=== PATIENT | male | born 1950 | race Caucasian/White ===

== ENCOUNTER 2019-04-18 18:19 | Inpatient (IN) | payer MEDICARE, OTHER ==
[~2019-04-18] VITALS: Ht 185.4 cm; Wt 72.6 kg
[2019-04-18] MEDS ORDERED: IV NORMAL SALINE 1,000ML 1,000 ML IV ONE (18:45)
[2019-04-18 19:24] LABS: BASO % 1 % (0-3); EOS # 0.3 x10^3/uL (0.0-0.7); EOS % 4 % (0-3); HEMATOCRIT 36.5 % (39.0-53.0); HEMOGLOBIN 11.9 g/dL (13.0-17.5); LYMPH # 1.2 x10^3/uL (1.0-4.8); LYMPH % 17 % (24-48); MEAN CORPUSCULAR HEMOGLOBIN 33 pg (25-35); MEAN CORPUSCULAR HGB CONC 33 g/dL (31-37); MEAN CORPUSCULAR VOLUME 100 fL (79-100); MONO # 0.4 x10^3/uL (0.0-1.1); MONO % 6 % (0-9); NEUT # 4.9 x10^3uL (1.8-7.7); NEUT % 72 % (31-73); PLATELET COUNT 217 x10^3/uL (140-400); RED BLOOD COUNT 3.64 x10^6/uL (4.30-5.70); RED CELL DISTRIBUTION WIDTH 18.6 % (11.5-14.5); WHITE BLOOD COUNT 6.8 x10^3/uL (4.0-11.0)
[2019-04-18 19:31] LABS: ALBUMIN 2.7 g/dL (3.4-5.0); ALBUMIN/GLOBULIN RATIO 0.6 (1.0-1.7); CREATININE 0.6 mg/dL (0.7-1.3); GFR 134.8; POTASSIUM 3.5 mmol/L (3.5-5.1); TOTAL BILIRUBIN 0.2 mg/dL (0.2-1.0); TOTAL PROTEIN 6.9 g/dL (6.4-8.2)
--- NOTE | 2019-04-18 19:31 | RAD ---
Exam: CT lumbar spine without contrast INDICATION: Burning sensation, lower legs. Loss bowel and bladder. Can't move TECHNIQUE: Sequential axial images through the lumbar spine obtained without IV contrast. Sagittal and coronal reformatted images were reconstructed from the axial data and reviewed. Comparisons: None FINDINGS: Mild compression of the superior endplate of L4 with less than 25 percent height loss. No retropulsion. There is straightening of the lumbar spine which may be positional. Fracture to the lumbar spine is not identified. L1-L2: Mild broad-based disc bulge without significant neural foraminal or spinal canal stenosis. L2-L3: Mild broad-based disc bulge, facet arthropathy and ligamentum flavum thickening causing mild spinal canal stenosis. No significant neural foraminal stenosis. L3-L4: Broad-based disc bulge, ligament flavum thickening and facet arthropathy causing at least moderate spinal canal stenosis and moderate bilateral neural foraminal stenosis. L4-L5: Broad-based disc bulge causing moderate left and mild right-sided neural foraminal stenosis. L5-S1: Broad-based disc bulge and facet arthropathy causing moderate to severe left and moderate right-sided neural foraminal stenosis. Patchy airspace disease at the left lung base. Hepatic steatosis. IMPRESSION: 1. Visual spondylotic change in the lumbar spine as described above greatest at L3-L4 with at least moderate spinal canal stenosis and moderate bilateral neural foraminal stenosis. 2. Mild compression deformity of the superior endplate of L4 with less than 25 percent height loss, age indeterminate. No significant retropulsion into the spinal canal. 3. Patchy airspace disease at the left lung, may represent pneumonia. Recommend correlation with chest radiograph. 4. Diffuse hepatic steatosis. Exposure: One or more of the following in the visualized dose reduction techniques were utilized for this examination: 1. Automated exposure control 2. Adjustment of the MA and/or KV according to patient size 3. Use of iterative of reconstructive technique Electronically signed by: Mark Holm MD (04/18/2019 7:29 PM) [facility]
--- NOTE | 2019-04-18 20:41 | PHYS DOC ---
Past History Past Medical History: Alcoholism Past Surgical History: No Surgical History Alcohol Use: Heavy Drug Use: None Adult General Chief Complaint Chief Complaint: LOWER EXT PAIN HPI HPI 68-year-old male presents via EMS as a referral from the [place]. The patient is reported to be calling out for help where he lives in a neighbor called an ambulance. Shortly events report stated the patient had altered mental status and absent pulses in the right foot. The patient was complaining about foot numbness and low back pain. On arrival to the ED, he is alert and oriented 3. He is complaining of chronic lower extremity cramping and pain. He was found lost balance bladder. He tells me that this is not unusual for him. He drinks alcohol daily. He has had less alcohol to drink today than usual. He is not very specific about any other complaints. He is able to answer all my questions without difficulty. He denies fever or chills. Review of Systems Review of Systems Constitutional: Denies fever or chills [] Eyes: Denies change in visual acuity, redness, or eye pain [] HENT: Denies nasal congestion or sore throat [] Respiratory: Denies cough or shortness of breath [] Cardiovascular: No additional information not addressed in HPI [] GI: Denies abdominal pain, nausea, vomiting, bloody stools or diarrhea [] : Denies dysuria or hematuria [] Musculoskeletal: Bilateral lower extremity cramping[] Integument: Denies rash or skin lesions [] Neurologic: Loss of bowel and bladder. Denies headache, focal weakness or sensory changes from baseline [] Endocrine: Denies polyuria or polydipsia [] All other systems were reviewed and found to be within normal limits, except as documented in this note. Current Medications Current Medications Current Medications Medications (Trade) Dose Ordered Sig/Joseph Start Time Stop Time Status Last Admin Dose Admin Sodium Chloride 1,000 ml @ 1,000 mls/hr 1X ONCE 04/18/19 18:45 04/18/19 19:44 DC 04/18/19 18:45 1,000 MLS/HR Allergies Allergies Allergies Coded Allergies Type Severity Reaction Last Updated Verified No Known Drug Allergies 04/18/19 No Physical Exam Physical Exam Constitutional: Well developed, thin, no acute distress, non-toxic appearance. [] HENT: Normocephalic, atraumatic, bilateral external ears normal, oropharynx very dry, no oral exudates, nose normal. [] Eyes: PERRLA, EOMI, conjunctiva normal, no discharge. [] Neck: Normal range of motion, no tenderness, supple, no stridor. [] Cardiovascular: Heart rate regular rhythm, no murmur [] Lungs & Thorax: Bilateral breath sounds clear to auscultation [] Abdomen: Bowel sounds normal, soft, no tenderness, no masses, no pulsatile masses. [] Skin: Cool, moist, no erythema, no rash. [] Back: No tenderness, no CVA tenderness. [] Extremities: No tenderness, no cyanosis, no clubbing, ROM intact, no edema. Moving all extremities to command. Strength 4 out of 5 upper and lower extremities bilaterally. [] Neurologic: Alert and oriented X 3, normal motor function, normal sensory function, no focal deficits noted. [] Psychologic: Affect normal, judgement normal, mood normal. [] Current Patient Data Vital Signs Vital Signs Date Time Temp Pulse Resp B/P (MAP) Pulse Ox O2 Delivery O2 Flow Rate FiO2 04/18/19 18:33 100 20 89 Nasal Cannula 3.0 Lab Results Laboratory Tests Test 04/18/19 18:50 White Blood Count 6.8 x10^3/uL (4.0-11.0) Red Blood Count 3.64 x10^6/uL (4.30-5.70) L Hemoglobin 11.9 g/dL (13.0-17.5) L Hematocrit 36.5 % (39.0-53.0) L Mean Corpuscular Volume 100 fL (79-100) Mean Corpuscular Hemoglobin 33 pg (25-35) Mean Corpuscular Hemoglobin Concent 33 g/dL (31-37) Red Cell Distribution Width 18.6 % (11.5-14.5) H Platelet Count 217 x10^3/uL (140-400) Neutrophils (%) (Auto) 72 % (31-73) Lymphocytes (%) (Auto) 17 % (24-48) L Monocytes (%) (Auto) 6 % (0-9) Eosinophils (%) (Auto) 4 % (0-3) H Basophils (%) (Auto) 1 % (0-3) Neutrophils # (Auto) 4.9 x10^3uL (1.8-7.7) Lymphocytes # (Auto) 1.2 x10^3/uL (1.0-4.8) Monocytes # (Auto) 0.4 x10^3/uL (0.0-1.1) Eosinophils # (Auto) 0.3 x10^3/uL (0.0-0.7) Basophils # (Auto) 0.0 x10^3/uL (0.0-0.2) Sodium Level 142 mmol/L (136-145) Potassium Level 3.5 mmol/L (3.5-5.1) Chloride Level 103 mmol/L (98-107) Carbon Dioxide Level 29 mmol/L (21-32) Anion Gap 10 (6-14) Blood Urea Nitrogen 8 mg/dL (8-26) Creatinine 0.6 mg/dL (0.7-1.3) L Estimated GFR (Cockcroft-Gault) 134.8 BUN/Creatinine Ratio 13 (6-20) Glucose Level 86 mg/dL (70-99) Calcium Level 8.0 mg/dL (8.5-10.1) L Total Bilirubin 0.2 mg/dL (0.2-1.0) Aspartate Amino Transferase (AST) 31 U/L (15-37) Alanine Aminotransferase (ALT) 18 U/L (16-63) Alkaline Phosphatase 109 U/L (46-116) Total Protein 6.9 g/dL (6.4-8.2) Albumin 2.7 g/dL (3.4-5.0) L Albumin/Globulin Ratio 0.6 (1.0-1.7) L Ethyl Alcohol Level 320 mg/dL (0-10) H EKG EKG Sinus rhythm, rate 90, leftward axis, no ST elevations or depressions.[] Radiology/Procedures Radiology/Procedures [] Impressions: Exam: CT lumbar spine without contrast INDICATION: Burning sensation, lower legs. Loss bowel and bladder. Can't move TECHNIQUE: Sequential axial images through the lumbar spine obtained without IV contrast. Sagittal and coronal reformatted images were reconstructed from the axial data and reviewed. Comparisons: None FINDINGS: Mild compression of the superior endplate of L4 with less than 25 percent height loss. No retropulsion. There is straightening of the lumbar spine which may be positional. Fracture to the lumbar spine is not identified. L1-L2: Mild broad-based disc bulge without significant neural foraminal or spinal canal stenosis. L2-L3: Mild broad-based disc bulge, facet arthropathy and ligamentum flavum thickening causing mild spinal canal stenosis. No significant neural foraminal stenosis. L3-L4: Broad-based disc bulge, ligament flavum thickening and facet arthropathy causing at least moderate spinal canal stenosis and moderate bilateral neural foraminal stenosis. L4-L5: Broad-based disc bulge causing moderate left and mild right-sided neural foraminal stenosis. L5-S1: Broad-based disc bulge and facet arthropathy causing moderate to severe left and moderate right-sided neural foraminal stenosis. Patchy airspace disease at the left lung base. Hepatic steatosis. IMPRESSION: 1. Visual spondylotic change in the lumbar spine as described above greatest at L3-L4 with at least moderate spinal canal stenosis and moderate bilateral neural foraminal stenosis. 2. Mild compression deformity of the superior endplate of L4 with less than 25 percent height loss, age indeterminate. No significant retropulsion into the spinal canal. 3. Patchy airspace disease at the left lung, may represent pneumonia. Recommend correlation with chest radiograph. 4. Diffuse hepatic steatosis. Exposure: One or more of the following in the visualized dose reduction techniques were utilized for this examination: 1. Automated exposure control 2. Adjustment of the MA and/or KV according to patient size 3. Use of iterative of reconstructive technique Electronically signed by: Mark Caraballo MD (04/18/2019 7:29 PM) [facility] DICTATED AND SIGNED BY: MARK CARABALLO MD DATE: 04/18/191928 CC: FRIDA BURR DO; PCP,NO ~ Course & Med Decision Making Course & Med Decision Making Pertinent Labs and Imaging studies reviewed. (See chart for details) The patient's lumbar CT is significant for several areas of disc bulge and stenosis. This is likely leading to his lower extremity symptoms. It does not appear that he has any change from baseline. He is moving all of his extremities without difficulty. He has normal cap refill in his upper and lower extremities. He appears quite dehydrated. We will give him 1 L normal saline. His labs are remarkable for mild anemia. His alcohol level was 340. Urinalysis and drug screen are pending. His urinalysis is negative for infection. The patient is unable to care for himself at home right now due to his intoxication. I will admit him to sober up. I spoke with Dr. Ronquillo and he has accepted patient for admission. [] Dragon Disclaimer Dragon Disclaimer This electronic medical record was generated, in whole or in part, using a voice recognition dictation system. Departure Departure: Impression: Primary Impression: Alcohol intoxication Disposition: ADMITTED INPATIENT Admitting Physician: Wilber Ronquillo Condition: STABLE Referrals: PCP,NO (PCP) Problem Qualifiers Primary Impression: Alcohol intoxication Complication of substance-induced condition: uncomplicated Qualified Codes: F10.920 - Alcohol use, unspecified with intoxication, uncomplicated FRIDA BURR DO Apr 18, 2019 20:41
[2019-04-18 21:51] LABS: BARBITURATES NEG (NEG); BENZODIAZEPINES NEG (NEG); CANNABINOIDS NEG (NEG); COCAINE NEG (NEG); METHADONE NEG (NEG); OPIATES NEG (NEG); PHENCYCLIDINE NEG (NEG)
[2019-04-18 21:58] LABS: AMPHETAMINE/METHAMPHETAMINE NEG (NEG)
--- NOTE | 2019-04-18 21:59 | RAD ---
Indication:Shortness of breath and cough TECHNIQUE:Portable AP chest X-ray COMPARISON: None FINDINGS: Heart is normal in size. There is loss of left lung volume with opacification of the left lower lung zone with patchy opacities. Coarse interstitial opacities are seen in the right lung. No pneumothorax. Subacute to chronic right lateral fourth, fifth rib fractures. Impression: Consolidation in the left lung base with loss of left lung volume may be from pneumonia, atelectasis or aspiration. Right lung COPD changes. Superimposed atypical/viral infection not ruled out. Electronically signed by: Thaddeus Schroeder DO (04/18/2019 9:56 PM) [facility]
[2019-04-18 22:04] LABS: BILIRUBIN,URINE NEG (NEG); CLARITY,URINE CLEAR; COLOR,URINE YELLOW; GLUCOSE,URINE NEG (NEG)
[2019-04-18 22:05] LABS: BACTERIA,URINE 0 /HPF (0-FEW); NITRITE,URINE NEG (NEG); RBC,URINE 0 /HPF (0-2); UROBILINOGEN,URINE 0.2 mg/dL (0.2 mg/dL); WBC,URINE 0 /HPF (0-4)
[2019-04-19] MEDS ORDERED: ONDANSETRON PF 4 MG/2 ML VIAL. IV PRN (01:00)
[2019-04-19] MEDS ORDERED: MVI, ADULT NO.4 WITH VIT K 10 ML, THIAMINE INJ 100 MG, FOLIC ACID INJ 1 MG in IV NORMAL... IV SCH ×4 (01:30)
[2019-04-19 01:59] VITALS: BP 134/75
[2019-04-19] MEDS: IPRATRPIUM/ALBUTEROL 0.5/2.5MG 3 ML NEBU. NEB SCH ×5 (02:30→20:52)
[2019-04-19] MEDS ORDERED: GUAI600T47 PO (02:51)
[2019-04-19] MEDS ORDERED: IBUP200T58 PO (02:51)
[2019-04-19 04:57] VITALS: BP 132/74
[2019-04-19] MEDS ORDERED: Influenza vaccine per PROTOCOL. MC PRN (05:15)
[2019-04-19] MEDS ORDERED: PIP/TAZO PER PHARMACY MC PRN (05:30)
[2019-04-19] MEDS: PIPERACILLIN/TAZOBACTAM 3.375 GM in IV NORMAL SALINE 50ML 50 ML IV SCH ×3 (06:03→17:35)
--- NOTE | 2019-04-19 07:33 | EKG ---
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
[2019-04-19] MEDS ORDERED: FLU VAX QS 2019-20 (36MOS+)/PF 0.5 ML SYRINGE. VAX IM ONE (09:00)
[2019-04-19] MEDS: MVI, ADULT NO.4 WITH VIT K 10 ML, THIAMINE INJ 100 MG, FOLIC ACID INJ 1 MG in IV NORMAL... IV SCH ×4 (09:25)
[2019-04-19 10:51] VITALS: BP 128/75
[2019-04-19] MEDS ORDERED: CONTRAST GIVEN MC PRN (12:45)
[2019-04-19] MEDS ORDERED: IOHEXOL 350 MG/ML 100 ML VIAL. IV ONE (12:45)
--- NOTE | 2019-04-19 13:03 | HP ---
ADMIT DATE: 04/19/2019 HISTORY OF PRESENT ILLNESS: The patient is a 68-year-old male patient who was brought to the Emergency Room by emergency medical service personnel as a referral from the [place]. He apparently fell and was found according to him on the floor by his brother who has an extra hunter and he called the ambulance. He apparently was brought due to altered mental status and apparently was also complaining of back pain and tingling and numbness of his right foot. On arrival to the Emergency Room, he was alert, oriented x 3, complaining of chronic lower extremity cramping and pain. He apparently was found to be incontinent of bowel and bladder and he stated that this is not unusual for him. He drinks alcohol daily. He has drink less alcohol last night than usual; however, he was not specific as to how much he was drinking; however, he answered all questions without difficulty. Did complain of cough and sputum. Did not know what color it is. Denied any chest pain or shortness of breath and apparently, he was extensively investigated in the Emergency Room. His EKG that was in sinus rhythm, leftward axis, no ST segment elevation or depression. His CT scan of the lumbar spine without contrast showed that the patient has spondylitic changes in the lumbar spine, greatest at L3-L4 with at least moderate spinal canal stenosis and moderate bilateral neural foraminal stenosis, has also mild compression deformity of the superior endplate of L4 with less than 25% height loss, age indeterminate. No significant retropulsion and spinal canal and patchy airspace disease in the left lung represent pneumonia. Recommend correlation with chest radiograph and diffuse hepatic steatosis. He was admitted with alcohol intoxication, probably aspiration pneumonia. His blood alcohol level was extremely high at 340; however, his urinalysis was unremarkable. He was started on a banana bag, alcohol withdrawal protocol as well as started on Zosyn 3.375 grams IV every 6 hours for possible aspiration pneumonia. PAST MEDICAL HISTORY: Significant for chronic obstructive pulmonary disease, chronic back pain, and degenerative disk disease. PAST SURGICAL HISTORY: Significant for cataract extraction of his right eye, cholecystectomy, back surgery as well as esophagogastroduodenoscopy and colonoscopy. ALLERGIES: He has no known drug allergies. MEDICATIONS: He is currently on following medications: He is on ibuprofen 200 mg 3 times a day as needed, Mucinex 600 mg twice a day. He is also on occasional inhalers. FAMILY HISTORY: Noncontributory. SOCIAL HISTORY: He is , lives alone. He has 1 daughter. 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 He continued to smoke and drink alcohol; however, denied any illicit drug use. REVIEW OF SYSTEMS: The patient denied any blurring of vision. He does have cataract in left eye that is scheduled for surgery. Denied any glaucoma or macular degeneration. Denied any earache, tinnitus or sensorineural deafness. Denied any nosebleeds, stuffy nose or postnasal drip. Denied any sore throat, sore tongue, toothache, hoarseness of voice, difficulty swallowing. He did complain of weight loss, although he could not specify how many pounds and over what period of time. Denied any nausea, vomiting, diarrhea or constipation. Denied any hematemesis, melena, hematochezia. Denied any dysuria, frequency or hematuria. Denied any chest pain, shortness of breath, but did complain of cough with sputum. He denied any orthopnea or paroxysmal nocturnal dyspnea. Denied any chills, rigors, or fever. Denied any dizziness, lightheadedness, or vertigo. Did complain of back pain and tingling and numbness in the right lower extremity. PHYSICAL EXAMINATION: GENERAL: On arrival to the Emergency Room, he looked well and was clearly in no apparent respiratory distress, pale, somewhat cachectic, but no jaundice, cyanosis or thyromegaly. No jugular venous distention. No limb edema. VITAL SIGNS: His heart rate was 76, blood pressure 115/63, his temperature was 98.3, respiratory rate was 19 and oxygen saturation was 95% on 2 liters of oxygen. HEAD, EYES, EARS, NOSE AND THROAT: He is normocephalic, atraumatic. He has some bruises on the right forehead. NECK: Supple. HEART: Showed normal first and second heart sounds. No gallop or murmur. CHEST: Shows central trachea, equally reduced expansion, reduced air entry, vesicular sounds. No crepitation or rhonchi. ABDOMEN: Scaphoid, soft, nontender. NEUROLOGIC: He is awake, alert, responding appropriately. All cranial nerves intact. EXTREMITIES: He moves all extremities without difficulty. He ambulates with a walker. LABORATORY DATA: His lab work showed a white cell count of 6800, hemoglobin 11.9, hematocrit 36.5, MCV 100, and platelet count 217,000 with normal manual differential. His chemistry showed a serum sodium 142, potassium 3.5, chloride was 103, bicarbonate 29, anion gap of 10, BUN 8, creatinine 0.6, estimated GFR was 134 mL per minute, his glucose was 86, calcium was 8. Total bilirubin, AST, ALT, alkaline phosphatase were normal. Total protein was 6.9, albumin was 2.7. Urinalysis showed the urine was yellow, clear with a pH of 6, specific gravity of 1.020. There was trace of protein, negative for glucose, ketones, blood, nitrite, leukocyte esterase. There are no rbc's, no wbc's, and no bacteria. His toxic screen was positive for blood alcohol level of 320 mg/dL, which was negative for opiates, methadone, barbiturates, phencyclidine, amphetamine, methamphetamine, benzodiazepine, cocaine, and cannabinoids. IMAGIN. His chest x-ray showed that there is consolidation in the left lung base with loss of left lung volume, may be from pneumonia or atelectasis, aspiration, right lung COPD changes superimposed on atypical viral infection not ruled out. He did have a CT scan of his lumbar spine, which showed that the patient has spondylitic changes in the lumbar spine as described above, greatest at L3-L4 with at least moderate spinal canal stenosis and moderate bilateral neural foraminal stenosis. 2. He has mild compression deformity of the superior endplate of L4 with less than 25% height loss, age indeterminate. No significant retropulsion into the spinal canal. He has patchy airspace disease at the left lung may represent pneumonia. Recommend correlation with chest radiograph. 3. He has diffuse hepatic steatosis. ASSESSMENT AND PLAN: In summary, this is a 68-year-old male patient who was admitted with fall, was found to be intoxicated with a blood alcohol level of more than 120 mg/dL, probably have aspiration pneumonia. He has left lower lobe infiltrate/consolidation, for which we started him on IV Zosyn as he is likely possibility that he might have aspirated and this would cover both the anaerobes and ____ gram-negative rods. We will continue with alcohol withdrawal protocol including a banana bag. We will continue with physical and occupational therapy. He has apparently severe peripheral vascular disease. I will arrange for him to have arterial Doppler ultrasound of both lower extremities. Other problems including spondylosis and compression fracture of L4. I would also check his lipid profile and we will decide on further management accordingly. LUIS INTERIANO MD DR: LENNOX/olya JOB#: [id number] / [id number]
[2019-04-19 15:25] VITALS: BP 117/65
--- NOTE | 2019-04-19 16:14 | RAD ---
CT ANGIOGRAPHY CHEST History: Marked mediastinal shift to the left. Possible atelectasis. Technique: CT of the chest was performed with contrast. PE protocol. Maximum intensity projection coronal and sagittal reconstructions were performed. Exposure: One or more of the following individualized dose reduction techniques were utilized for this examination: 1. Automated exposure control 2. Adjustment of the mA and/or kV according to patient size 3. Use of iterative reconstruction technique. Contrast: 90 mL Isovue-370 IV contrast. Comparison: Chest x-ray April 18, 2019 Findings: Chest: Eccentric filling defect within the right anterior upper lobe pulmonary artery. Linear filling defect within the right lower lobe pulmonary artery. Additional linear defect within the right posterior lower lobe pulmonary artery. No aortic dissection or aneurysm. Left lower lobe and lingular patchy consolidations with groundglass opacities. Additional mild right lower lobe groundglass opacities. Moderate to advanced pulmonary emphysema. Bronchial wall thickening most prominent within the bilateral lower lobes. Multifocal left lower lobe mucous plugging. Mild mediastinal shift to the left due to right hyperinflation. Small bilateral pleural effusions with adjacent atelectasis. Right upper lobe pulmonary nodule with eccentric calcification and irregular margins measures 5 mm (series 10 image #32). No pathologic axillary, mediastinal or hilar adenopathy. Anterior lower chest wall subcutaneous lesion measures 1.8 x 0.9 cm, most likely epidermal inclusion cyst Upper abdomen: Prior cholecystectomy. Bones: No pathologic osseous lesions. Chronic bilateral rib fractures. Subacute to chronic right lateral third through 6 rib fractures. Impression: 1. Left lower lobe and lingular consolidations with groundglass opacities, concerning for pneumonia and aspiration is possible. Recommend follow-up to ensure resolution. 2. Bilateral bronchial wall thickening with left lower lobe mucous plugging. 3. Right upper lobe irregular nodule. Recommend attention on short-term follow-up. 4. Sequelae of chronic pulmonary emboli. 5. Small bilateral pleural effusions with adjacent atelectasis. 6. Moderate to advanced pulmonary emphysema. 7. Subacute to chronic right lateral third through sixth rib fractures. 8. Anterior lower chest wall subcutaneous lesion, favor epidermal inclusion cyst. Electronically signed by: Fer Dalton DO (04/19/2019 4:11 PM) [facility]
--- NOTE | 2019-04-19 17:59 | RAD ---
ARTERIAL STUDY LOWER EXT BI Indication: Pain in both lower extremities. Absent pulses. Comparison: None. Procedure: Real-time grayscale, color flow Doppler, and Doppler spectral waveform analysis of the arterial system of the lower extremity is performed. Findings: Triphasic or biphasic waveforms are present in the common femoral artery, superficial femoral artery, popliteal artery, anterior tibial artery, posterior tibial artery and dorsalis pedis artery. No significant velocity elevation bilaterally. IMPRESSION: 1. No hemodynamically significant stenosis. Electronically signed by: Fer Dalton DO (04/19/2019 5:56 PM) [facility]
[2019-04-19 20:28] VITALS: BP 119/59
[2019-04-19] MEDS ORDERED: ACETAMINOPHEN 325 MG TABLET PO PRN (20:45)
[2019-04-19] MEDS: LACTOBACILLUS RHAMNOSUS GG 1 CAPSULE. PO SCH (21:21)
[2019-04-19 23:58] VITALS: BP 122/77
[2019-04-20] MEDS: PIPERACILLIN/TAZOBACTAM 3.375 GM in IV NORMAL SALINE 50ML 50 ML IV SCH ×4 (00:18→17:36)
[2019-04-20] MEDS: IPRATRPIUM/ALBUTEROL 0.5/2.5MG 3 ML NEBU. NEB SCH ×4 (05:49→20:24)
[2019-04-20 06:07] VITALS: BP 118/79
[2019-04-20 06:31] LABS: HEMATOCRIT 34.2 % (39.0-53.0); HEMOGLOBIN 11.2 g/dL (13.0-17.5); RED BLOOD COUNT 3.4 x10^6/uL (4.30-5.70); RED CELL DISTRIBUTION WIDTH 17.9 % (11.5-14.5); WHITE BLOOD COUNT 5.8 x10^3/uL (4.0-11.0)
[2019-04-20 06:38] LABS: CALCIUM 8.2 mg/dL (8.5-10.1); CREATININE 0.6 mg/dL (0.7-1.3); GFR 134.8; POTASSIUM 3.1 mmol/L (3.5-5.1)
[2019-04-20] MEDS ORDERED: POTASSIUM CHLORIDE 20 MEQ TABLET.ER. PO ONE (07:15)
[2019-04-20] MEDS: LACTOBACILLUS RHAMNOSUS GG 1 CAPSULE. PO SCH ×2 (08:04→21:15)
[2019-04-20] MEDS: MVI, ADULT NO.4 WITH VIT K 10 ML, THIAMINE INJ 100 MG, FOLIC ACID INJ 1 MG in IV NORMAL... IV SCH ×4 (09:40)
[2019-04-20 12:44] VITALS: BP 133/78
[2019-04-20] MEDS: POTASSIUM CHLORIDE 20 MEQ TABLET.ER. PO SCH ×2 (13:36→21:16)
[2019-04-20] MEDS: ENOXAPARIN 40 MG/0.4 ML SYRINGE. SQ SCH (13:37)
[2019-04-20 15:57] VITALS: BP 120/74
[2019-04-20 19:20] VITALS: BP 136/83
[2019-04-20 23:05] VITALS: BP 136/80
[2019-04-21] MEDS: PIPERACILLIN/TAZOBACTAM 3.375 GM in IV NORMAL SALINE 50ML 50 ML IV SCH ×3 (00:22→11:30)
--- NOTE | 2019-04-21 02:25 | PN ---
DATE: 04/20/2019 SUBJECTIVE: The patient is resting slightly propped up in bed, in no apparent distress, awake, alert, stated that he is not short of breath, no more chest tightness, cough is much improved. OBJECTIVE: GENERAL: When I examined him, he looked somewhat pale, but no jaundice, cyanosis or thyromegaly. No jugular venous distention. No limb edema. VITAL SIGNS: His heart rate was 83, blood pressure was 133/78, temperature was 97.6, respiratory rate 22, and oxygen saturation was 95% on 1 liter of oxygen. HEAD, EYES, EARS, NOSE AND THROAT: Showed normocephalic, atraumatic. NECK: Supple. HEART: Showed normal first and second heart sounds. No gallop, rub or murmur. CHEST: Clear to auscultation. No crepitation or rhonchi. He has crepitation mostly in the left side posteriorly. I could not appreciate any rhonchi. ABDOMEN: Distended, soft, nontender. No guarding or rigidity. No organomegaly. All hernial orifices intact. Bowel sounds normal. NEUROLOGIC: He is awake, alert, responding appropriately. All cranial nerves are intact. He moves extremities without difficulty. He ambulates without assistance or assistive devices. His intake over the last 24 hours was 1400, output was 600. LABORATORY DATA: His white cell count was 5800, hemoglobin 11, hematocrit 34, MCV 101 and platelet count of 136,000. His chemistry showed a serum sodium 137, potassium 3.1, chloride 100, bicarbonate 32, anion gap of 5, BUN 5, creatinine was 0.6, estimated GFR was 34 mL per minute, his glucose was 81, calcium was 8.2. Urinalysis was unremarkable. Toxic screen was positive for alcohol. His arterial Doppler ultrasound showed the patient has triphasic and biphasic waveforms are present in the common femoral artery, superficial femoral artery, popliteal artery, anterior tibial artery, posterior tibial artery and dorsalis pedis artery. No significant velocity elevations bilaterally. IMPRESSION: 1. He did have a CT angio of the chest, which basically showed that the patient has left lower lobe and lingular consolidation with ground glass opacities concerning for pneumonia and aspiration is possible. Recommend followup to ensure resolution. 2. He has bilateral bronchial wall thickening with left lower lobe mucus plugging. 3. Right upper lobe regular nodule, recommend attention on short-term followup. 4. Sequelae of chronic pulmonary emboli. 5. He has small bilateral pleural effusion, adjacent atelectasis. 6. Moderate to advanced pulmonary emphysema. 7. Subacute to chronic right lateral third through the sixth rib fracture. 8. Anterior lower chest wall subcutaneous lesion, favor epidermal inclusion cyst. PLAN: To continue with IV antibiotic in the form of Zosyn 3.375 grams for his community-acquired pneumonia, chronic obstructive pulmonary disease exacerbation. We will continue with bronchodilator. I will add Mucinex and perhaps replenish his potassium and start him also on Lovenox 40 mg subcutaneously daily for DVT prophylaxis. LUIS INTERIANO MD DR: LENNOX/olya JOB#: [id number] / [id number]
[2019-04-21] MEDS: IPRATRPIUM/ALBUTEROL 0.5/2.5MG 3 ML NEBU. NEB SCH ×2 (05:09→11:21)
[2019-04-21 05:45] VITALS: BP 147/89
[2019-04-21 06:18] LABS: CALCIUM 8.8 mg/dL (8.5-10.1); CREATININE 0.6 mg/dL (0.7-1.3); GFR 134.8; POTASSIUM 3.6 mmol/L (3.5-5.1)
[2019-04-21 06:23] LABS: HEMOGLOBIN 11.8 g/dL (13.0-17.5); RED BLOOD COUNT 3.6 x10^6/uL (4.30-5.70); RED CELL DISTRIBUTION WIDTH 17.9 % (11.5-14.5); WHITE BLOOD COUNT 5.9 x10^3/uL (4.0-11.0)
[2019-04-21] MEDS: POTASSIUM CHLORIDE 20 MEQ TABLET.ER. PO SCH ×2 (07:57→13:04)
[2019-04-21] MEDS: LACTOBACILLUS RHAMNOSUS GG 1 CAPSULE. PO SCH (07:57)
[2019-04-21] MEDS: MVI, ADULT NO.4 WITH VIT K 10 ML, THIAMINE INJ 100 MG, FOLIC ACID INJ 1 MG in IV NORMAL... IV SCH ×4 (09:31)
[2019-04-21 10:48] VITALS: BP 134/74
[2019-04-21] MEDS: ENOXAPARIN 40 MG/0.4 ML SYRINGE. SQ SCH (13:03)
[2019-04-21] MEDS ORDERED: AMOX1TAB61 PO (14:54)
[2019-04-21] MEDS ORDERED: ALBU2.5V8 IH (14:59)
[2019-04-21 15:16] VITALS: BP 133/58
== END 2019-04-21 16:00 | disposition home or self-care (01) | DRG 177 ==
LOC: ER 18:19 → 1 SOUTH 23:45 → INTOOBSV 23:45 → 1 SOUTH 04-19 01:10 → UNDOADMIN 04-19 01:10 → OBSVTOIN 04-19 13:07
PROVIDERS: ADMIT Internal Medicine; ATTEND Internal Medicine
DX: J69.0 Pneumonitis due to inhalation of food and vomit (principal); E43 Unspecified severe protein-calorie malnutrition; T17.890A Other foreign object in other parts of respiratory tract causing asphyxiation, initial encounter; I27.82 Chronic pulmonary embolism; J98.11 Atelectasis; M84.48XA Pathological fracture, other site, initial encounter for fracture; I73.9 Peripheral vascular disease, unspecified; F10.229 Alcohol dependence with intoxication, unspecified; M48.061 Spinal stenosis, lumbar region without neurogenic claudication; G89.29 Other chronic pain; J43.9 Emphysema, unspecified; R32 Unspecified urinary incontinence; Z68.21 Body mass index [BMI] 21.0-21.9, adult
CPT/HCPCS: 36415; 71045; 71275; 72131; 80048; 80053; 80061; 80307; 81001; 85025; 85027; 90471; 90686; 93005; 93923; 94640; 99406; G0378; G0379; G0480; J1650; J2543; J7620; Q9967; J7030